=== PATIENT | female | born 1945 | race Caucasian/White ===

== ENCOUNTER 2016-11-11 19:50 | Emergency (ER) | payer OTHER, MEDICARE ==
[~2016-11-11] VITALS: Ht 154.9 cm; Wt 63.6 kg
[~2016-11-11 19:50] MED LIST: ACET325T51 PO; ALOE VERA; ASCO100089 PO; ATOR20TA65 TUBE; BUPR-97 PO; CALCIT PO; DILT180C66 PO; DOXY25TA44 PO; ECHI400C17 PO; FAMO20T PO; LECI400C PO; LEVO750T9 PO; MELA1TAB9 PO; METO25TA6 PO; MULT-939 PO; OMEG-38 PO
[2016-11-11 20:10] VITALS: BP 126/40; PULSE 61; RESP 13; O2SAT 97
--- NOTE | 2016-11-11 21:03 | ED.REPORT ---
HPI-General Illness Date of Service Nov 11, 2016 ED Provider: Dar Bartholomew MD 71 year old female with a history of stroke, pacemaker, hypertension, and anxiety among other medical concerns presents to the ED via EMS complaining of dizziness and fatigue that began suddenly in the shower earlier this evening. She reports that she has never experienced dizziness like this before and was feeling well before entering the shower. She reports having a big dinner before entering the shower. She did not lose consciousness. Patient denies any chest pain, SOB, nausea, vomiting, diarrhea, or loss of appetite. Per , the patient has not been maintaining good hydration these past few days. Nursing Notes Stated Complaint: DIZZINESS Chief Complaint: General Complaint Nursing Notes Reviewed: Yes Allergies: Coded Allergies: aprepitant (Verified Allergy, Severe, 11/11/16) fosaprepitant (Verified Allergy, Severe, 11/11/16) sulfamethoxazole (Verified Allergy, Severe, 11/11/16) trimethoprim (Verified Allergy, Severe, 11/11/16) Scheduled ([Aloe Vera]) 5,000 MG UD Ascorbic Acid (Vitamin C) 1,000 Mg Tab.chew 1,000 MG PO DAILY Atorvastatin Calcium (Atorvastatin Calcium) 20 Mg Tablet 40 MG TUBE HS Bupropion ER (Wellbutrin XL) 150 Mg Tab.er.24h 150 MG PO DAILY Calcium Citrate (Calcium Citrate) 250 Mg Tablet 500 MG PO UD Diltiazem ER (Cardizem CD) 180 Mg Capsule 180 MG PO DAILY Famotidine (Pepcid) 20 Mg Tablet 20 MG PO BID Lecithin, Soy (Lecithin) 400 Mg Capsule 520 MG PO UD Levofloxacin (Levaquin) 750 Mg Tablet 750 MG PO DAILYAC Metoprolol Tartrate (Metoprolol Tartrate) 25 Mg Tablet 25 MG PO BID Multivits,Ca,Minerals/Iron/FA (Women's Daily Formula Tablet) 1 Each Tablet 1 EACH PO DAILY Scheduled PRN Acetaminophen (Acetaminophen) 325 Mg Tablet 650 MG PO DIRECTED PRN PRN For Pain Doxylamine Succinate (Nighttime Sleep-Aid) 25 Mg Tablet 25 MG PO DIRECTED PRN PRN Insomnia Melatonin (Melatonin) 1 Mg Tablet 5 MG PO DIRECTED PRN PRN Insomnia Miscellaneous Medications Echinacea (Echinacea) 400 Mg Capsule 400 MG PO [place]-3/Dha/Epa/Fish Oil (Fish Oil 1,000 mg Softgel) 1 Each Capsule 1 EACH PO General Time Seen by MD: 21:02 Chief Complaint Dizziness Hx Obtained From: Patient, EMS Arrived By: Ambulance Sudden in Onset?: Yes Onset Occurred: 1 - 4 hours ago Symptom Duration: Intermittent Severity: Current: No pain currently Severity: Maximum: No pain Recent Healthcare: No recent hospitalization Similar Sx Previous: No Past Medical History Past Medical History 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 Zhu's esophagus. Endoscopy per Dr. Baca August 31, 2013. Other history including bone spur right ankle, AB zero, TIA May 2012, colonic polyps, vertigo, and iron deficiency. Reports: Hypertension, Transient ischemic attack Past Surgical History Lumbar puncture Reports: Pacemaker insertion Family History noncontributory Smoking History Former Smoker Social History Alcohol Use: Denies alcohol use Drug Use: Denies drug use Other Social History: Good social support, Ambulatory Status Independent Review of Systems Denies loss of appetite. Decreased fluid intake. Full Review of Systems Constitutional: Reports: Fatigue Respiratory: Denies: Shortness of breath Cardiovascular: Denies: Chest pain GI: Denies: Diarrhea, Nausea, Vomiting Neurologic: Reports: Dizziness, Denies: Change LOC Complete sys rev & neg: except as marked. Physical Exam Vital Signs Vital Signs Date Time Temp Pulse Resp B/P Pulse Ox O2 Delivery O2 Flow Rate FiO2 11/11/16 23:29 66 22 131/82 95 Room Air 11/11/16 20:10 37.0 61 13 126/40 97 Room Air Initial VS: Reviewed General/Constitutional: Awake, Alert Head / Eyes: Atraumatic, Normocephalic, PERRL, EOMI ENT: Atraumatic, Airway patent Mouth: Positive: Mucous membranes dry, Tongue abnormal (Tongue coated) Neck: Atraumatic, Supple, Full range of motion, No JVD Respiratory / Chest: Atraumatic, Breath sounds NL, Breath sounds = bilat, No respiratory distress, No rales, No rhonchi, No wheezing Cardiovascular: Heart rate NL, Regular rhythm, Heart sounds NL, No gallop, No murmurs, No rubs Abdomen: Atraumatic, Soft, Non-tender, No guarding, No rebound Back: Atraumatic, Full range of motion Upper Extremities Upper Extremity / MS: Atraumatic, Inspection NL, Full range of motion, No swelling, Non-tender Lower Extremity / Pelvis / MS: Atraumatic, Inspection NL, Full range of motion , No swelling, Non-tender Skin: Atraumatic, Color NL, No rash, Warm, Dry Neurologic: Oriented X3, Speech NL, No motor deficits, No sensory deficits Psychiatric: Affect NL, Mood NL Interpretation & Diagnostics Lab Results Interpretation Result Diagram: 11/11/16220911/11/162209 Test 11/11/16 22:10 11/11/16 22:30 White Blood Count 22.5th/mm3 (3.8-10.1) Red Blood Count 3.14mil/mm3 (3.90-5.20) Hemoglobin 10.1g/dL (12.0-15.6) Hematocrit 30.4% (35.0-46.0) Mean Corpuscular Volume 96.8fL (81-100) Mean Corpuscular Hemoglobin 32.2pg (27.0-35.0) Mean Corpuscular Hemoglobin Concent 33.2% (32.0-37.0) Red Cell Distribution Width 14.6% (12.3-15.4) Platelet Count 221bil/L (150-400) Neutrophils (%) (Auto) 80.8% (40-74) Lymphocytes (%) (Auto) 8.5% (14-46) Monocytes (%) (Auto) 8.4% (4-12) Eosinophils (%) (Auto) 1.0% (0-5) Basophils (%) (Auto) 0.5% (0-3) Prothrombin Time 11.5sec (8.1-12.5) Prothromb Time International Ratio 1.07ratio Sodium Level 141mEq/L (134-144) Potassium Level 4.2mEq/L (3.5-5.2) Chloride Level 104mEq/L (97-108) Carbon Dioxide Level 23mmol/L (18-29) Blood Urea Nitrogen 24mg/dL (8-27) Creatinine 0.96mg/dL (0.57-1.00) Estimat Glomerular Filtration Rate 82mL/min (>59) Glucose Level 123mg/dL (60-99) Calcium Level 8.6mg/dL (8.5-10.1) Magnesium Level 2.3mg/dL (1.6-2.6) Total Bilirubin 1.0mg/dL (0.0-1.2) Aspartate Amino Transf (AST/SGOT) 16U/L (0-50) Alanine Aminotransferase (ALT/SGPT) 16U/L (0-32) Alkaline Phosphatase 82U/L (25-165) Troponin T 0.010ug/L (0.0-0.011) Pro-B-Type Natriuretic Peptide 415.0pg/mL (0-301) Total Protein 6.7g/dL (6.4-8.4) Albumin 3.9g/dL (3.4-5.0) Hold [place] Top Tube Received (Received) Hold Urine Received (Received) ECG Interpretation ECG Interpretation: Atrial-paced complexes. Rate is 60. Nonspecific intraventricular conduction delay. Time: 20:31 Interpreted by: ED physician X-Ray Chest Interpretation Chest Xray Interpretation: IMPRESSION: Acute disease is not seen in any AP portable chest. Dictated by: Ross Lund M.D. on 11/11/2016 at 22:04 Approved by: Ross Lund M.D. on 11/11/2016 at 22:06 View: Portable, 1 view Interpretation / Wet Read by: Interpret - Radiologist Re-Eval/Medical Decision Med Decision/Clinical Course 71-year-old presents with a presyncopal episode after eating a large meal and then getting into a hot shower. She has an elevated white count but is chronically had an elevated white count, sometimes in the range of 20,000 where she is today. No other findings to suggest coronary disease pulmonary embolus or any other finding of concern. She is feeling better after a liter of fluid and some observation here. Discharged now in stable condition. Source of Hx: Old records Time of Eval: 21:24 Re-Evaluation/Progress Note: Rechecked patient. Explained test results and answered all questions. Time of Eval: 23:13 Re-Evaluation/Progress Note: Discussed plan for discharge. Counseled Regarding: Diagnosis, Lab results, Need for follow-up, When/why to return to ED Discharge & Departure Primary Impression: Vaso vagal episode Disposition: Home Discharge Condition All VS Reviewed: Yes Condition: Stable Patient Instructions: Syncope (ED) Additional Instructions: Try and stay hydrated. Drink plenty of clear fluids. Follow-up with your doctor in the office. We find no evidence of dangerous pathology to explain your faint sensation. Return here if any recurrences or any worsening, or any other new symptoms of concern. Referrals: Estela Yo MD (PCP) Scribe Attestation Portions of this note were transcribed by Chito Spears and Pia Henderson . I, Dr. Bartholomew personally performed the history, physical exam and medical decision -making; I reviewed and confirmed the accuracy of the information in the transcribed note. Signed by:Chito Spears and Nayeli Clancy, 11/11/2016 and 2318. copies to: Estela Yo MD, Christopher W MD Nov 11, 2016 21:03 Chito Spears Nov 11, 2016 21:10 PIA HENDERSON Nov 11, 2016 22:24
[2016-11-11] MEDS ORDERED: 0.9% Sodium Chloride 1,000 ML IV ONE (21:23)
--- NOTE | 2016-11-11 22:06 | DRSVH ---
PROCEDURE: X-RAY CHEST ONE VIEW, PORTABLE ([id number]) INDICATIONS: near syncope TECHNIQUE: One view of the chest was acquired. COMPARISON: [facility], CR, XR RIBS INC PA CXR MIN 3VW LT, 09/21/2015, 11:57. FINDINGS: Surgical changes and devices: Port-A-Cath from the right is unchanged since older images with the tip in the distal superior vena cava. Pacemaker from the left with 2 leads is unchanged in position.. Bones and chest wall: No fractures or dislocations. No suspicious bony lesions. Overlying soft tis sues appear unremarkable. Lungs and pleura: No pleural effusions or pneumothorax. Lungs appear clear. Mediastinum: Mediastinal contours appear normal. Heart size is normal. IMPRESSION: Acute disease is not seen in any AP portable chest. Dictated by: Ross Lund M.D. on 11/11/2016 at 22:04 Approved by: Ross Lund M.D. on 11/11/2016 at 22:06
[2016-11-11 22:20] LABS: BASOPHILS % (AUTO) 0.5 % (0-3); MONOCYTES % (AUTO) 8.4 % (4-12); Mean Corpuscular Hemoglobin 32.2 pg (27.0-35.0); Mean Corpuscular Volume 96.8 fL (81-100); NEUTROPHILS % (AUTO) 80.8 % (40-74); Platelet Count 221 bil/L (150-400)
[2016-11-11 22:47] LABS: TROPONIN T 0.01 ug/L (0.0-0.011)
[2016-11-11 22:58] LABS: Magnesium 2.3 mg/dL (1.6-2.6)
[2016-11-11 23:04] LABS: INR 1.07 ratio
[2016-11-11 23:29] VITALS: BP 131/82; PULSE 66; RESP 22; O2SAT 95
== END 2016-11-11 23:30 | disposition home or self-care (01) ==
LOC: SED 19:50 → EDBD 19:50 → SED 23:30
DX: R55 Syncope and collapse (principal); I10 Essential (primary) hypertension; Z87.891 Personal history of nicotine dependence; Z95.0 Presence of cardiac pacemaker; Z86.73 Personal history of transient ischemic attack (TIA), and cerebral infarction without residual deficits; Z88.1 Allergy status to other antibiotic agents; Z88.2 Allergy status to sulfonamides; Z88.8 Allergy status to other drugs, medicaments and biological substances
CPT/HCPCS: 36415; 71010; 80053; 83735; 83880; 84484; 85025; 85610; 93005; 96360; 99285; J7030

== ENCOUNTER 2016-11-27 16:29 | Emergency (ER) | payer OTHER, MEDICARE ==
[~2016-11-27] VITALS: Ht 154.9 cm; Wt 72.7 kg
[2016-11-27 16:38] VITALS: BP 161/66; PULSE 78; RESP 16; O2SAT 96
--- NOTE | 2016-11-27 16:56 | ED.REPORT ---
HPI-Trauma Minor / Fall Date of Service Nov 27, 2016 ED Provider: Dr. Salgado Pt is a 71 y/o female anticoagulated on Pradaxa w/ a hx of dementia, CVA, CLL, anemia, HTN, presenting to the ED with her c/o left-sided rib pain secondary to ground level fall onset about 1 hour prior to arrival. The patient cannot remember what happened and per her , she is acting confused (he notes that she has dementia but is unclear if her confusion is acute). The patient thinks she fell getting out of a car while attempting to get out but her states that she fell onto her left side when she may have been sitting or standing at [employer]. He brought her to a table in the restaurant and turned to walk away and heard a loud bang and noticed that she was lying on the ground on her back. The patient denies any head injury although this is unclear. Pt denies neck pain, extremity pain, PETERSON, nausea, vomiting, focal numbness or weakness. History is limited due to confusion / unclear story. Nursing Notes Stated Complaint: RIB PAIN/FALL Chief Complaint: Multiple Trauma/Fall Nursing Notes Reviewed: Yes Allergies: Coded Allergies: aprepitant (Verified Allergy, Severe, 11/11/16) fosaprepitant (Verified Allergy, Severe, 11/11/16) sulfamethoxazole (Verified Allergy, Severe, 11/11/16) trimethoprim (Verified Allergy, Severe, 11/11/16) Scheduled ([Aloe Vera]) 5,000 MG UD Ascorbic Acid (Vitamin C) 1,000 Mg Tab.chew 1,000 MG PO DAILY Atorvastatin Calcium (Atorvastatin Calcium) 20 Mg Tablet 40 MG TUBE HS Bupropion ER (Wellbutrin XL) 150 Mg Tab.er.24h 150 MG PO DAILY Calcium Citrate (Calcium Citrate) 250 Mg Tablet 500 MG PO UD Diltiazem ER (Cardizem CD) 180 Mg Capsule 180 MG PO DAILY Famotidine (Pepcid) 20 Mg Tablet 20 MG PO BID Lecithin, Soy (Lecithin) 400 Mg Capsule 520 MG PO UD Levofloxacin (Levaquin) 750 Mg Tablet 750 MG PO DAILYAC Metoprolol Tartrate (Metoprolol Tartrate) 25 Mg Tablet 25 MG PO BID Multivits,Ca,Minerals/Iron/FA (Women's Daily Formula Tablet) 1 Each Tablet 1 EACH PO DAILY Nitrofurantoin Monohyd/M-Cryst (MacroBid) 100 Mg Capsule 100 MG PO BID Scheduled PRN Acetaminophen (Acetaminophen) 325 Mg Tablet 650 MG PO DIRECTED PRN PRN For Pain Doxylamine Succinate (Nighttime Sleep-Aid) 25 Mg Tablet 25 MG PO DIRECTED PRN PRN Insomnia Hydrocodone-Acetaminophen 5-325 mg (Hydrocodone-Acetaminophen 5-325 mg) 1 Each Tablet 1 TABLET PO Q4H PRN PRN For Pain Melatonin (Melatonin) 1 Mg Tablet 5 MG PO DIRECTED PRN PRN Insomnia Miscellaneous Medications Echinacea (Echinacea) 400 Mg Capsule 400 MG PO [place]-3/Dha/Epa/Fish Oil (Fish Oil 1,000 mg Softgel) 1 Each Capsule 1 EACH PO General Time Seen by MD: 16:54 Chief Complaint Fall Hx Obtained From: Patient Arrived By: Walk-in Onset Occurred: 1 - 4 hours ago Symptom Duration: Since onset Caused by: Accidental Location: Chest (left rib) Quality: Painful Severity: Current: Mild Severity: Maximum: Moderate Past Medical History Past Medical History Dementia Lymphoma type two B per Hypertension Per old reports: Mass in head related to CLL Anxiety Chronic hemolytic anemia dating back to 1977 with continued borderline macrocytic anemia and a prior history of B12 deficiency as well. Zhu's esophagus. Endoscopy per Dr. Baca August 31, 2013. Other history including bone spur right ankle, AB zero, TIA May 2012, colonic polyps, vertigo, Iron deficiency. Past Surgical History Reports: Pacemaker insertion Family History noncontributory Smoking History Former Smoker Social History Alcohol Use: Denies alcohol use Drug Use: Denies drug use Other Social History: Good social support, Ambulatory Status Independent Review of Systems Constitutional: Denies: Chills, Fever Respiratory: Denies: Non-productive cough, Shortness of breath Musculoskeletal: Denies: Extremity pain, Extremity swelling Neurologic: Reports: Confusion (unclear if acute), Denies: Focal weakness, Headache, Numbness Complete sys rev & neg: except as marked. Cardiovascular: Reports: Chest pain (noncard) GI: Denies: Abdominal pain, Nausea, Vomiting Physical Exam Initial Vital Signs Vital Signs (First) Date Time Temp Pulse Resp B/P Pulse Ox O2 Delivery O2 Flow Rate FiO2 11/27/16 16:38 36.2 78 16 161/66 96 11/27/16 20:51 Room Air 11/27/16 21:51 2 Initial VS: Reviewed, Vital signs abnormal Head / Eyes: Atraumatic, Normocephalic, PERRL ENT: Mucous membranes moist, Conjunctiva normal, No scleral icterus Cardiovascular: Regular rate & rhythm, Heart sounds normal, Intact distal pulses Abdomen / GI: Soft, Non-tender, No guarding, No rebound, No distention Extremities: Vascular intact, Neuro intact, No swelling, No tenderness Skin: Warm, Dry, No cyanosis General/Constitutional: Awake, Alert, No acute distress, Cooperative, Not toxic appearing Neck: Atraumatic, Supple, No meningismus, Full range of motion, No swelling, Non-tender, No midline vertebral tend Respiratory / Chest: Atraumatic, Breath sounds NL, Breath sounds = bilat, No respiratory distress, No rales, No rhonchi, No wheezing, No retractions, No stridor, No chest wall deformity, No crepitus Focal tenderness over ribs 5, 6, and 7 over the mid-axillary line Neurologic: Oriented X3, Speech NL, No motor deficits, No sensory deficits Interpretation & Diagnostics Lab Results Interpretation Result Diagram: 11/27/16 1750 11/27/16 1750 Test 11/27/16 17:50 11/27/16 18:50 White Blood Count 14.0th/mm3 (3.8-10.1) Red Blood Count 3.21mil/mm3 (3.90-5.20) Hemoglobin 10.3g/dL (12.0-15.6) Hematocrit 30.5% (35.0-46.0) Mean Corpuscular Volume 95.0fL (81-100) Mean Corpuscular Hemoglobin 32.1pg (27.0-35.0) Mean Corpuscular Hemoglobin Concent 33.8% (32.0-37.0) Red Cell Distribution Width 14.2% (12.3-15.4) Platelet Count 249bil/L (150-400) Neutrophils (%) (Auto) 79.7% (40-74) Lymphocytes (%) (Auto) 9.3% (14-46) Monocytes (%) (Auto) 8.3% (4-12) Eosinophils (%) (Auto) 1.5% (0-5) Basophils (%) (Auto) 0.6% (0-3) Sodium Level 139mEq/L (134-144) Potassium Level 4.5mEq/L (3.5-5.2) Chloride Level 101mEq/L (97-108) Carbon Dioxide Level 20mmol/L (18-29) Blood Urea Nitrogen 22mg/dL (8-27) Creatinine 0.87mg/dL (0.57-1.00) Estimat Glomerular Filtration Rate 92mL/min (>59) Glucose Level 126mg/dL (60-99) Lactic Acid Level 2.0mmol/L (0.4-2.0) Calcium Level 9.5mg/dL (8.5-10.1) Magnesium Level 2.1mg/dL (1.6-2.6) Total Bilirubin 1.5mg/dL (0.0-1.2) Aspartate Amino Transf (AST/SGOT) 23U/L (0-50) Alanine Aminotransferase (ALT/SGPT) 21U/L (0-32) Alkaline Phosphatase 83U/L (25-165) Troponin T < 0.010ug/L (0.0-0.011) Total Protein 7.3g/dL (6.4-8.4) Albumin 4.6g/dL (3.4-5.0) Urine Color Yellow (YELLOW) Urine Appearance Hazy (CLEAR,HAZY) Urine pH 6.0 (5.0-8.0) Urine Specific [place] 1.010 (1.003-1.035) Urine Protein Negativemg/dL (NEG,TRACE) Urine Glucose (UA) Negativemg/dL (NEGATIVE) Urine Ketones Negativemg/dL (NEGATIVE) Urine Occult Blood Negative (NEGATIVE) Urine Nitrite Negative (NEGATIVE) Urine Bilirubin Negative (NEGATIVE) Urine Urobilinogen Normalmg/dL (NORMAL) Urine Leukocyte Esterase Trace (NEGATIVE) Urine RBC 0-2/hpf (0-2) Urine WBC 6-10/hpf (0-5) Urine Epithelial Cells Moderate/hpf (NONE-MOD) Urine Crystals None seen (NONE SEEN) Urine Bacteria Few/hpf (NONE-FEW) Urine Hyaline Casts None/lpf (NONE) Urine Granular Casts None seen (NONE SEEN) Urine Waxy Casts None seen (NONE SEEN) Urine Red Blood Cell Casts None seen (NONE SEEN) Urine White Blood Cell Casts None seen (NONE SEEN) Urine Mucus None seen (None Seen) Urine Trichomonas None seen (NONE SEEN) Urine Yeast Moderate (NONE SEEN) Urinalysis Comment None Urine Culture Reflexed Indicated ECG Interpretation ECG Interpretation: Atrial paced complexes rate 60 No abnormalities Time: 18:35 Interpreted by: ED physician Normal ECG Interpretation: No change from prior ECGs X-Ray Chest Interpretation Chest Xray Interpretation: IMPRESSION: No acute process. Dictated by: Diane Garcia M.D. on 11/27/2016 at 18:25 Approved by: Diane Garcia M.D. on 11/27/2016 at 18:26 View: Portable, AP & lat Interpretation / Wet Read by: Interpret - Radiologist X-Ray Interpretation Xray Interpretation: IMPRESSION: No acute fracture. No osseous lesion. If clinical suspicion and/or symptoms persist, further assessment with repeat plainfilms, or advanced imaging (e.g., CT, MRI, or bone scan) may be helpful for further assessment. Dictated by: Diane Garcia M.D. on 11/27/2016 at 18:24 Approved by: Diane Garcia M.D. on 11/27/2016 at 18:25 Study Performed: Left ribs 2 views Interpretation / Wet Read by: Interpret - Radiologist CT Head Interpretation IMPRESSION: No acute intracranial abnormality. Dictated by: Diane Garcia M.D. on 11/27/2016 at 18:26 Approved by: Diane Garcia M.D. on 11/27/2016 at 18:27 Study: Head CT no contrast Interpretation / Wet Read by: Interpret - Radiologist Re-Eval/Medical Decision Med Decision/Clinical Course 71-year-old female with a history of dementia and resides with her after a non-witnessed fall at [facility]. It is unclear if she was sitting in a chair or standing up at that time. Patient's story is very inconsistent. There is no injury of the head noted, however she admits to hitting her head. Her neck exam is unremarkable as she has full and nontender range of motion. I decided to order labs to look for any reason for the increased confusion and fall. It appears she has a UTI based off the urine studies. Her notes her white blood cell count is normally elevated. Her rib x-ray does not reveal any fractures. Counseled Regarding: Diagnosis, Lab results, Need for follow-up, When/why to return to ED Discharge & Departure Impression: Primary Impression: Urinary tract infection Urinary tract infection type: site unspecified Hematuria presence: without hematuria Qualified Code: N39.0 - Urinary tract infection, site not specified Additional Impressions: Contusion of rib on left side Encounter type: initial encounter Qualified Code: S20.212A - Contusion of left front wall of thorax, initial encounter Fall from ground level Leukocytosis Leukocytosis type: unspecified Qualified Code: D72.829 - Elevated white blood cell count, unspecified Disposition: Home Discharge Condition All VS Reviewed: Yes Condition: Stable Patient Instructions: Contusions in Adults (ED), Urinary Tract Infection in Women (ED) Additional Instructions: Your labs showed sign of urinary tract infection, which can often cause confusion and weakness in older patients. Your labs were otherwise normal. The CT scan of the head was normal, there is no stroke or bleeding in the brain. The x-rays were negative for fracture and pneumonia. Take the full course of Macrobid twice per day for 7 days. You can take 600 mg Ibuprofen every 6 hours as needed for pain. Take Creola as needed for severe breakthrough pain. Creola commonly causes drowsiness and constipation. Follow-up with your primary care doctor next week. Return to the emergency department for worsening pain, trouble breathing, profound weakness or lethargy, persistent vomiting, high fever, or for other concerning symptoms. Referrals: Estela Yo MD (PCP) Nayeli Attestation Portions of this note were transcribed by Cj Danielle. I, Dr. Salgado, personally performed the history, physical exam and medical decision-making; I reviewed and confirmed the accuracy of the information in the transcribed note. Signed by Nayeli Silva, 11/27/16 - 1700 copies to: Estela Yo MD, Gary R DO Nov 27, 2016 16:55 CJ DANIELLE Nov 27, 2016 16:57
[2016-11-27] MEDS ORDERED: 0.9% Sodium Chloride 1,000 ML IV ONE (17:30)
[2016-11-27 18:15] LABS: BASOPHILS % (AUTO) 0.6 % (0-3); EOSINOPHILS % (AUTO) 1.5 % (0-5); MONOCYTES % (AUTO) 8.3 % (4-12); Mean Corpuscular Hemoglobin 32.1 pg (27.0-35.0); NEUTROPHILS % (AUTO) 79.7 % (40-74); Platelet Count 249 bil/L (150-400)
--- NOTE | 2016-11-27 18:27 | DRSVH ---
PROCEDURE: X-RAY LEFT RIBS, TWO VIEWS ([id number]) INDICATIONS: fall, L rib pain TECHNIQUE: 2 views of the left ribs were acquired. COMPARISON: [facility], CR, XR CHEST 2VW, 11/27/2016, 17:59. [facility], CR, XR CHEST 1VW (PORTABLE), 11/11/2016, 21:24. FINDINGS: Surgical changes and devices: Left-sided pacer. Bones and chest wall: No fractures or dislocations. No suspicious bony lesions. Overlying soft tis sues appear unremarkable. Lungs and pleura: The visualized lung appears clear. No pleural effusions or pneumothorax are visib le. IMPRESSION: No acute fracture. No osseous lesion. If clinical suspicion and/or symptoms persist, fur ther assessment with repeat plainfilms, or advanced imaging (e.g., CT, MRI, or bone scan) may be help ful for further assessment. Dictated by: Diane Garcia M.D. on 11/27/2016 at 18:24 Approved by: Diane Garcia M.D. on 11/27/2016 at 18:25
--- NOTE | 2016-11-27 18:28 | DRSVH ---
PROCEDURE: X-RAY CHEST, TWO VIEWS ([id number]) INDICATIONS: fall, confusion TECHNIQUE: 2 views of the chest were acquired. COMPARISON: [facility], CR, XR RIBS UNILAT 2VW LT, 11/27/2016, 17:59. [facility], CR, XR CHEST 1VW (PORTABLE), 11/11/2016, 21:24. FINDINGS: Surgical changes and devices: Right chest wall mike catheter, tip of which is in the lower SVC. Left -sided pacer. Lungs and pleura: No pleural effusions or pneumothorax. Lungs are clear. Mediastinum: Mediastinal contours are normal. Heart size is normal. Bones and chest wall: No suspicious bony abnormalities. Soft tissues appear unremarkable. IMPRESSION: No acute process. Dictated by: Diane Garcia M.D. on 11/27/2016 at 18:25 Approved by: Diane Garcia M.D. on 11/27/2016 at 18:26
--- NOTE | 2016-11-27 18:29 | DRSVH ---
PROCEDURE: CT BRAIN WITHOUT CONTRAST ([id number]) INDICATIONS: fall, hit head, confusion TECHNIQUE: Noncontrast 4.5 mm thick angled axial sections acquired from the foramen magnum to the vertex, with c oronal reformats. COMPARISON: Outside Film, CT, CT BRAIN W&WO CON, 09/05/2015, 17:06. FINDINGS: Image quality: Excellent. CSF spaces: Basal cisterns are patent. No extra-axial fluid collections. The ventricles are symmet lexie in size and shape. Brain: No intracranial bleeds or masses. Small chronic left anterolateral frontal lobe infarct is p resent, as before. There is cerebral volume loss for age, with resultant ventricular and sulcal promi nence. There are periventricular and deep white matter chronic small vessel ischemic changes. There is intracranial internal carotid artery atherosclerosis. Skull and face: Calvarium and visualized facial bones appear intact, without suspicious lesions. Sinuses: Visualized sinuses and mastoids are clear. IMPRESSION: No acute intracranial abnormality. Dictated by: Diane Garcia M.D. on 11/27/2016 at 18:26 Approved by: Diane Garcia M.D. on 11/27/2016 at 18:27
[2016-11-27 18:33] LABS: TROPONIN T < 0.010 ug/L (0.0-0.011)
[2016-11-27 18:37] LABS: Magnesium 2.1 mg/dL (1.6-2.6)
[2016-11-27 19:22] LABS: APPEARANCE,URINE HAZY (CLEAR,HAZY); COLOR,URINE YELLOW (YELLOW); OCCULT BLOOD,URINE NEGATIVE (NEGATIVE); UROBILINOGEN,URINE NORMAL (NORMAL)
[2016-11-27 19:23] LABS: YEAST,URINE MODERATE (NONE SEEN)
[2016-11-27] MEDS ORDERED: Nitrofurantoin Monohyd-Macrocryst 100 mg Capsule PO ONE (20:25)
[2016-11-27 20:51] VITALS: BP 139/54; PULSE 65; RESP 16; O2SAT 96
[2016-11-27] MEDS ORDERED: HYDROcodone-APAP 5-325 mg Tablet PO ONE (21:10)
[2016-11-27] MEDS ORDERED: NITR100 PO (21:30)
[2016-11-27] MEDS ORDERED: HYDR-4003 PO (21:30)
[2016-11-27 21:51] VITALS: BP 110/34; PULSE 58; RESP 14; O2SAT 94
== END 2016-11-27 21:45 | disposition home or self-care (01) ==
LOC: SED 16:29
DX: S20.212A Contusion of left front wall of thorax, initial encounter (principal); W18.39XA Other fall on same level, initial encounter; Y93.89 Activity, other specified; Y92.511 Restaurant or cafe as the place of occurrence of the external cause; Y99.8 Other external cause status; N39.0 Urinary tract infection, site not specified; D72.829 Elevated white blood cell count, unspecified; R41.0 Disorientation, unspecified; F03.90 Unspecified dementia, unspecified severity, without behavioral disturbance, psychotic disturbance, mood disturbance, and anxiety; I10 Essential (primary) hypertension; Z86.73 Personal history of transient ischemic attack (TIA), and cerebral infarction without residual deficits; Z95.0 Presence of cardiac pacemaker; Z79.01 Long term (current) use of anticoagulants; Z87.891 Personal history of nicotine dependence; Z88.1 Allergy status to other antibiotic agents; Z88.8 Allergy status to other drugs, medicaments and biological substances
CPT/HCPCS: 36415; 70450; 71020; 71100; 80053; 81000; 83605; 83735; 84484; 85025; 87086; 87088; 93005; 96361; 96374; 99285; J7030

== ENCOUNTER 2016-11-29 00:12 | Emergency (ER) | payer OTHER, MEDICARE ==
[~2016-11-29] VITALS: Ht 154.9 cm; Wt 65.9 kg
[~2016-11-29 00:12] MED LIST changes: +HYDR-4003 PO; +NITR100 PO
[2016-11-29 00:32] VITALS: BP 152/35; PULSE 61; RESP 20; O2SAT 96
--- NOTE | 2016-11-29 01:01 | ED.REPORT ---
HPI-Chest Pain 40 and Over Date of Service Nov 29, 2016 ED Provider: Travis Bunn MD This is a 71 year old female who is anticoagulated on Pradaxa, with a history of dementia, hypertension, chronic anemia, CVA, CLL, TIA presenting to the emergency department complaining of left sided rib pain that began yesterday after a GLF. Pt reports falling at a fast food restaurant and shortly developed the pain. Pt seen in the ED yesterday, had negative x-rays, diagnosed with left rib contusion and UTI. Presents today with persistent rib pain. Denies headache, neck pain, back pain, dyspnea, cough, or focal numbness or weakness at this time. Nursing Notes Stated Complaint: RIB PAIN Chief Complaint: Chest Pain-Non Cardiac Nature Nursing Notes Reviewed: Yes Allergies: Coded Allergies: aprepitant (Verified Allergy, Severe, 11/29/16) fosaprepitant (Verified Allergy, Severe, 11/29/16) sulfamethoxazole (Verified Allergy, Severe, 11/29/16) trimethoprim (Verified Allergy, Severe, 11/29/16) Scheduled ([Aloe Vera]) 5,000 MG UD Ascorbic Acid (Vitamin C) 1,000 Mg Tab.chew 1,000 MG PO DAILY Atorvastatin Calcium (Atorvastatin Calcium) 20 Mg Tablet 40 MG TUBE HS Bupropion ER (Wellbutrin XL) 150 Mg Tab.er.24h 150 MG PO DAILY Calcium Citrate (Calcium Citrate) 250 Mg Tablet 500 MG PO UD Diltiazem ER (Cardizem CD) 180 Mg Capsule 180 MG PO DAILY Famotidine (Pepcid) 20 Mg Tablet 20 MG PO BID Lecithin, Soy (Lecithin) 400 Mg Capsule 520 MG PO UD Levofloxacin (Levaquin) 750 Mg Tablet 750 MG PO DAILYAC Metoprolol Tartrate (Metoprolol Tartrate) 25 Mg Tablet 25 MG PO BID Multivits,Ca,Minerals/Iron/FA (Women's Daily Formula Tablet) 1 Each Tablet 1 EACH PO DAILY Nitrofurantoin Monohyd/M-Cryst (MacroBid) 100 Mg Capsule 100 MG PO BID Scheduled PRN Acetaminophen (Acetaminophen) 325 Mg Tablet 650 MG PO DIRECTED PRN PRN For Pain Doxylamine Succinate (Nighttime Sleep-Aid) 25 Mg Tablet 25 MG PO DIRECTED PRN PRN Insomnia Hydrocodone-Acetaminophen 5-325 mg (Hydrocodone-Acetaminophen 5-325 mg) 1 Each Tablet 1 TABLET PO Q4H PRN PRN For Pain Melatonin (Melatonin) 1 Mg Tablet 5 MG PO DIRECTED PRN PRN Insomnia Miscellaneous Medications Echinacea (Echinacea) 400 Mg Capsule 400 MG PO Ord-3/Dha/Epa/Fish Oil (Fish Oil 1,000 mg Softgel) 1 Each Capsule 1 EACH PO General Time Seen by MD: 01:00 Chief Complaint Chest pain Hx Obtained From: Patient Arrived By: Ambulance Sudden in Onset?: Yes Onset Occurred: Yesterday Symptom Duration: Since onset Severity: Current: Mild Pertinent Negative: Pt denies other symptoms Recent Healthcare: No recent doctor visit, No recent hospitalization Similar Sx Previous: Yes Past Medical History Past Medical History Dementia Lymphoma type two B per Hypertension Per old reports: Mass in head related to CLL Anxiety Chronic hemolytic anemia dating back to 1977 with continued borderline macrocytic anemia and a prior history of B12 deficiency as well. Zhu's esophagus. Endoscopy per Dr. Baca August 31, 2013. Other history including bone spur right ankle, AB zero, TIA May 2012, colonic polyps, vertigo, Iron deficiency. Past Surgical History Reports: Pacemaker insertion Family History noncontributory Smoking History Former Smoker Social History Alcohol Use: Denies alcohol use Drug Use: Denies drug use Other Social History: Good social support, Ambulatory Status Independent Review of Systems Constitutional: Denies: Chills, Fever Cardiovascular: Reports: Chest pain GI: Denies: Abdominal pain, Constipation, Diarrhea, Nausea, Vomiting Musculoskeletal: Denies: Back pain Skin: Denies Diaphoresis Neurologic: Denies: Headache Complete sys rev & neg: except as marked. Physical Exam Initial Vital Signs Vital Signs (First) Date Time Temp Pulse Resp B/P Pulse Ox O2 Delivery O2 Flow Rate FiO2 11/29/16 00:32 36.8 61 20 152/35 96 Room Air Initial VS: Reviewed, Vital signs normal Head / Eyes: Atraumatic, Normocephalic, PERRL ENT: Mucous membranes moist, Conjunctiva normal, No scleral icterus Neck: Supple, Non-tender, Full range of motion Extremities: Vascular intact, Neuro intact, No swelling, No tenderness Skin: Warm, Dry, No cyanosis Neurologic: Alert, Oriented, Nonfocal Psychiatric: Mood/affect normal, Behavior normal, Normal thought content General/Constitutional: Awake, Alert Respiratory / Chest: Breath sounds = bilat, No respiratory distress, No wheezing Tenderness at left anterior axillary line Cardiovascular: Heart rate NL, Regular rhythm, Heart sounds NL, No murmurs, Peripheral circulation NL, Pulses = bilaterally, No gross BP differential Abdomen: Soft, Non-tender, McBurney's non-tender, No guarding, No rebound, BS normoactive, No distention, No hernia, No palpable mass Interpretation & Diagnostics X-Ray Chest Interpretation Interpretation / Wet Read by: Wet read ED physician NL X-Ray Chest Findings: No acute disease Re-Eval/Medical Decision Med Decision/Clinical Course 71-year-old female who is on Pradaxa. She fell a couple of days ago and has had ongoing pain despite [place]. Repeat chest x-ray showed no evidence of pneumothorax or hemopneumothorax. She got good pain relief with oxycodone. The area of her pain is in an area of costal cartilage, so would not be seen as a rib fracture. She is reassured that pain will diminish over the next few days. Time of Eval: 03:42 Re-Evaluation/Progress Note: Plan for d/c, all questions addressed Counseled Regarding: Diagnosis, Lab results, Need for follow-up, When/why to return to ED Discharge & Departure Primary Impression: Rib injury Disposition: Home Discharge Condition All VS Reviewed: Yes Condition: Stable Additional Instructions: The chest x-ray is normal. No evidence of collapsed lung or bleeding. There are no fractured ribs but in the area of the your pain the ribs or cartilage and you would see any injury there. Continue her present medications. Follow- up with your regular doctor in 2 or 3 days if not improving. Referrals: Estela Yo MD (PCP) Scribe Attestation Portions of this note were transcribed by Elli Dueñas. I, Dr. Bunn personally performed the history, physical exam and medical decision-making; I reviewed and confirmed the accuracy of the information in the transcribed note. Signed by: yemi Silva. 11/28/2016, 06:00. Travis Bunn MD Nov 29, 2016 01:01 ELLI DUEÑAS Nov 29, 2016 01:12
[2016-11-29] MEDS ORDERED: oxyCODONE-Acetamin 5-325 mg Tablet PO ONE (01:35)
[2016-11-29 02:05] VITALS: BP 158/51; PULSE 64; RESP 16; O2SAT 97
[2016-11-29 03:52] VITALS: BP 158/51; PULSE 63; RESP 16; O2SAT 96
--- NOTE | 2016-11-29 08:45 | DRSVH ---
PROCEDURE: X-RAY CHEST, TWO VIEWS ([id number]) INDICATIONS: increased pain and psinting after fall TECHNIQUE: 2 views of the chest were acquired. COMPARISON: [facility], CR, XR RIBS UNILAT 2VW LT, 11/27/2016, 17:59. [facility], CR, XR CHEST 2VW, 11/27/2016, 17:59. FINDINGS: Surgical changes and devices: Stable positioning of right chest port and dual-chamber left cardiac pa cemaker. Lungs and pleura: Small pleural effusion on the left and no pneumothorax. Lungs are clear. Mediastinum: Mediastinal contours are normal. Heart size is normal. Bones and chest wall: No suspicious bony abnormalities. Soft tissues appear unremarkable. IMPRESSION: Small left pleural effusion. Dictated by: Ozzie Mills RRA Interpreted: Ananya Mejia MD on 11/29/2016 at 8:43 Transcribed by: BRENNA on 11/29/2016 at 8:44 Approved by: Ananya Mejia MD, PhD on 11/29/2016 at 8:45
== END 2016-11-29 03:53 | disposition home or self-care (01) ==
LOC: EDUNIT# 00:12 → EDBD 00:12 → SED 00:12
DX: S29.9XXD Unspecified injury of thorax, subsequent encounter (principal); W19.XXXD Unspecified fall, subsequent encounter; Y93.9 Activity, unspecified; Y92.511 Restaurant or cafe as the place of occurrence of the external cause; Y99.8 Other external cause status; F03.90 Unspecified dementia, unspecified severity, without behavioral disturbance, psychotic disturbance, mood disturbance, and anxiety; I10 Essential (primary) hypertension; Z88.8 Allergy status to other drugs, medicaments and biological substances; Z88.2 Allergy status to sulfonamides; Z87.891 Personal history of nicotine dependence; Z95.0 Presence of cardiac pacemaker; Z86.73 Personal history of transient ischemic attack (TIA), and cerebral infarction without residual deficits

== ENCOUNTER 2017-04-22 21:25 | Emergency (ER) | payer OTHER, MEDICARE ==
[~2017-04-22] VITALS: Ht 154.9 cm; Wt 68.2 kg
[2017-04-22 21:52] VITALS: BP 155/61; PULSE 65; RESP 18; O2SAT 99
--- NOTE | 2017-04-22 23:02 | ED.REPORT ---
HPI-Hip/Pelvis Prob/Inj Date of Service Apr 22, 2017 ED Provider: Wilson Hirsch MD 71 y/o female on Pradaxa with a hx of dementia, hypertension, chronic anemia, CVA, CLL, TIA presents to the ED complaining of right hip pain after she fell a few hours ago. She states she lost my balance and landed on her right hip. The pain is radiating to her right inguinal region. She denies hitting her head , losing consciousness and back pain. She was able to walk out of the house and again to the ED from the car. She states her pain is slowly worsening. Nursing Notes Stated Complaint: FELL INJURED HIP Chief Complaint: Female Abdominal Pain Nursing Notes Reviewed: Yes Allergies: Coded Allergies: aprepitant (Verified Allergy, Severe, 04/22/17) fosaprepitant (Verified Allergy, Severe, 04/22/17) sulfamethoxazole (Verified Allergy, Severe, 04/22/17) trimethoprim (Verified Allergy, Severe, 04/22/17) Scheduled ([Aloe Vera]) 5,000 MG UD Ascorbic Acid (Vitamin C) 1,000 Mg Tab.chew 1,000 MG PO DAILY Atorvastatin Calcium (Atorvastatin Calcium) 20 Mg Tablet 40 MG TUBE HS Bupropion ER (Wellbutrin XL) 150 Mg Tab.er.24h 150 MG PO DAILY Calcium Citrate (Calcium Citrate) 250 Mg Tablet 500 MG PO UD Diltiazem ER (Cardizem CD) 180 Mg Capsule 180 MG PO DAILY Famotidine (Pepcid) 20 Mg Tablet 20 MG PO BID Lecithin, Soy (Lecithin) 400 Mg Capsule 520 MG PO UD Levofloxacin (Levaquin) 750 Mg Tablet 750 MG PO DAILYAC Metoprolol Tartrate (Metoprolol Tartrate) 25 Mg Tablet 25 MG PO BID Multivits,Ca,Minerals/Iron/FA (Women's Daily Formula Tablet) 1 Each Tablet 1 EACH PO DAILY Nitrofurantoin Monohyd/M-Cryst (MacroBid) 100 Mg Capsule 100 MG PO BID Scheduled PRN Acetaminophen (Acetaminophen) 325 Mg Tablet 650 MG PO DIRECTED PRN PRN For Pain Doxylamine Succinate (Nighttime Sleep-Aid) 25 Mg Tablet 25 MG PO DIRECTED PRN PRN Insomnia Hydrocodone-Acetaminophen 5-325 mg (Hydrocodone-Acetaminophen 5-325 mg) 1 Each Tablet 1 TABLET PO Q4H PRN PRN For Pain Melatonin (Melatonin) 1 Mg Tablet 5 MG PO DIRECTED PRN PRN Insomnia Miscellaneous Medications Echinacea (Echinacea) 400 Mg Capsule 400 MG PO [place]-3/Dha/Epa/Fish Oil (Fish Oil 1,000 mg Softgel) 1 Each Capsule 1 EACH PO General Time Seen by Provider: 22:54 Chief Complaint Hip pain right Hx Obtained From: Patient Arrived By: Walk-in Onset Occurred: 1 - 4 hours ago Symptom Duration: Since onset Location: Hip, R posterior aspect Quality: Painful Radiation: Radiation present Severity: Current: Moderate Severity: Maximum: Moderate Recent Healthcare: Recent doctor visit Similar Sx Previous: No Past Medical History Past Medical History Dementia Lymphoma type two B per Hypertension Per old reports: Mass in head related to CLL Anxiety Chronic hemolytic anemia dating back to 1977 with continued borderline macrocytic anemia and a prior history of B12 deficiency as well. Zhu's esophagus. Endoscopy per Dr. Baca August 31, 2013. Other history including bone spur right ankle, AB zero, TIA May 2012, colonic polyps, vertigo, Iron deficiency. Past Surgical History Reports: Pacemaker insertion Family History noncontributory Smoking History Former Smoker Social History Alcohol Use: Denies alcohol use Drug Use: Denies drug use Other Social History: Good social support, Ambulatory Status Independent Review of Systems Musculoskeletal: Reports: Extremity pain (right hip) Neurologic: Denies: Change LOC Complete sys rev & neg: except as marked. Physical Exam Initial Vital Signs Vital Signs (First) Date Time Temp Pulse Resp B/P Pulse Ox O2 Delivery O2 Flow Rate FiO2 04/22/17 21:52 37.0 65 18 155/61 99 Room Air Initial VS: Reviewed Head / Eyes: Atraumatic, Normocephalic Neck: Supple, Non-tender, Full range of motion Respiratory: Breath sounds normal, Clear to auscultation, No respiratory distress Cardiovascular: Regular rate & rhythm, Heart sounds normal, Intact distal pulses Abdomen / GI: Soft, Non-tender Upper Extremities: Vascular intact, Neuro intact, No swelling, No tenderness Skin: Warm, Dry, No cyanosis Neurologic: Alert, Oriented, Nonfocal Lower Extremity / Pelvis / MS: No swelling, No deformity, Neurologic intact, Vascular intact Tolerates passive range of motion No bruising over the right hip No shortening of the extremity General/Constitutional: Awake, Alert, Cooperative Back: Atraumatic, Full range of motion Spine non-tender. Interpretation & Diagnostics X-Ray Interpretation Xray Interpretation: Normal. No fx X-Ray Ordered: Pelvis, Hip right Interpretation / Wet Read by: Wet read ED physician Re-Eval/Medical Decision Source of Hx: Old records Re-Evaluation/Progress : Time of Eval: 00:40 Re-Evaluation/Progress Note: Rechecked pt. Discussed imaging results, diagnosis and plan to discharge. Pt understands and agrees with the plan. F/U instruction and RTER warning given. All questions addressed. Counseled Regarding: Diagnosis, Lab results, Need for follow-up, When/why to return to ED Discharge & Departure Impression: Primary Impression: Contusion of right hip Disposition: Home Discharge Condition All VS Reviewed: Yes Additional Instructions: Emergency Department evaluation included interview exam and x-rays. No serious injury is identified. No evidence of any injury to the head. May use hydrocodone/APAP one to 2 every 4 hours as needed for pain. Plain Tylenol may be helpful as pain improves. No more than 600 mg tablets in a day. Follow-up with primary care if pain is not much improved in 3 days. Referrals: Estela Yo MD (PCP) Scribe Attestation Portions of this note were transcribed by Gustavo Cruz. I,, personally performed the history, physical exam and medical decision-making;I reviewed and confirmed the accuracy of the information in the transcribed note. Signed by Nayeli Aguirre. 04/23/17 copies to: Estela Yo MD, Donald L MD Apr 22, 2017 23:02 Gustavo Cruz Apr 23, 2017 00:19
[2017-04-22] MEDS ORDERED: HYDROcodone-APAP 5-325 mg Tablet PO ONE (23:05)
[2017-04-23] MEDS ORDERED: _HYDROcodone/APAP 5-325 mg Tablet PO PRN (00:45)
[2017-04-23 01:16] VITALS: BP 168/63; PULSE 77; RESP 18; O2SAT 97
--- NOTE | 2017-04-23 07:11 | DRSVH ---
PROCEDURE: X-RAY PELVIS W/LAT HIP (RT) ([id number]) INDICATIONS: RIGHT hip pain post fall TECHNIQUE: AP pelvis with lateral view(s) of the right hip(s). COMPARISON: None. FINDINGS: Bones: No fractures or dislocations. Pelvic ring appears intact. No suspicious bony lesions. Lowe r lumbar degenerative changes Soft tissues: The visualized bowel gas pattern is normal. No suspicious soft tissue calcifications. IMPRESSION: No fracture Dictated by: Brent Pineda M.D. on 04/23/2017 at 7:08 Approved by: Brent Pineda M.D. on 04/23/2017 at 7:09
== END 2017-04-23 01:16 | disposition home or self-care (01) ==
LOC: SED 21:25
DX: S70.01XA Contusion of right hip, initial encounter (principal); W18.39XA Other fall on same level, initial encounter; Y93.9 Activity, unspecified; Y92.9 Unspecified place or not applicable; Y99.9 Unspecified external cause status; I10 Essential (primary) hypertension; Z86.73 Personal history of transient ischemic attack (TIA), and cerebral infarction without residual deficits; Z87.891 Personal history of nicotine dependence; Z95.0 Presence of cardiac pacemaker; Z88.8 Allergy status to other drugs, medicaments and biological substances